=== PATIENT | male | born 1945 | race Caucasian/White ===

== ENCOUNTER 2022-05-21 15:48 | Outpatient (CLI) | payer MEDICARE ==
[2022-05-21 19:22] LABS: CALCIUM 9.1 mg/dL (8.5-10.3); CREATININE 1.2 mg/dL (0.6-1.2); POTASSIUM 4.3 mmol/L (3.5-5.0)
== END 2022-05-21 15:49 | disposition home or self-care (01) ==
LOC: LAB.S 15:48
PROVIDERS: ATTEND Family Medicine
DX: I10 Essential (primary) hypertension (principal)
CPT/HCPCS: 36415; 80048

== ENCOUNTER 2023-05-06 08:00 | Outpatient (CLI) | payer MEDICARE ==
--- NOTE | 2023-05-06 15:54 | XRAY Report ---
PROCEDURE: Abdomen 2 View X-Ray INDICATIONS: GENERALIZED ABDOMINAL PAIN TECHNIQUE: 2 views of the abdomen were acquired. COMPARISON: None. FINDINGS: Surgical changes and devices: None. Bowel: No pneumoperitoneum. The bowel gas pattern is normal. Mild increased colonic stool. Soft tissues: No masses; visualized solid organ contours appear normal in size. No suspicious abdom inal calcifications. Bones: No suspicious bony abnormalities. IMPRESSION: Increased colonic stool suggestive constipation without obstruction. Reviewed by: Debra Nicholson MD on 05/06/2023 3:53 PM PST Approved by: Debra Nicholson MD on 05/06/2023 3:53 PM [facility] Station ID: [id number]
== END 2023-05-06 23:59 | disposition home or self-care (01) ==
LOC: DI.S 08:00
PROVIDERS: ATTEND Physician Assistant Medical
DX: R10.84 Generalized abdominal pain (principal)

== ENCOUNTER 2023-05-28 09:34 | Emergency (ER) | payer MEDICARE ==
[2023-05-28 10:14] LABS: BASOPHILS # (AUTO) 0.1 10^3/uL (0.0-0.1); BASOPHILS % (AUTO) 0.7 %; EOSINOPHILS # (AUTO) 0.2 10^3/uL (0.0-0.7); EOSINOPHILS % (AUTO) 2.4 %; HCT - HEMATOCRIT 45.1 % (42.0-52.0); HGB - HEMOGLOBIN 14.6 g/dL (14.0-18.0); LYMPHOCYTES % (AUTO) 26.5 %; MEAN CORPUSCULAR HEMOGLOBIN 29.7 pg (27.0-31.0); MEAN CORPUSCULAR HGB CONC 32.4 g/dL (32.0-36.0); MEAN CORPUSCULAR VOLUME 91.9 fL (80.0-94.0); MEAN PLATELET VOLUME 10.8 fL (7.4-11.4); MONOCYTES # (AUTO) 0.7 10^3/uL (0.0-1.0); MONOCYTES % (AUTO) 9.3 %; NEUTROPHILS # (AUTO) 4.6 10^3/uL (1.5-6.6); NEUTROPHILS % (AUTO) 60.8 %; PLT - PLATELET COUNT 208 10^3/uL (130-450); RED BLOOD COUNT 4.91 10^6/uL (4.70-6.10); RED CELL DISTRIBUTION WIDTH 12.5 % (12.0-15.0); WHITE BLOOD COUNT 7.5 x10^3/uL (4.8-10.8)
[2023-05-28 10:30] LABS: ALBUMIN 4.2 g/dL (3.2-5.5); ALBUMIN/GLOBULIN RATIO 1.5 (1.0-2.2); BILIRUBIN,TOTAL 0.6 mg/dL (0.2-1.0); CALCIUM 9.9 mg/dL (8.5-10.3); CREATININE 1.2 mg/dL (0.6-1.3); POTASSIUM 4.1 mmol/L (3.5-4.5)
--- NOTE | 2023-05-28 13:22 | ED Physician Documentation ---
PD HPI ABD PAIN - Stated complaint Stated Complaint: ABD PX - Chief complaint Chief Complaint: Abd Pain - History obtained from History obtained from: Patient - Additional information Additional information: This is a 78-year-old male who presents today with lower abdominal pain as well as weight loss. He has had several episodes of abdominal pain over the course of the last 4 months or so. He has been seen by his PCP for this and had a prior CT scan a few weeks ago which was reportedly normal. His symptoms were attributed to constipation and he was started on a bowel regimen which she was taking and it was effective, he had bowel movements regularly however the MiraLAX was eventually stopped because he had 4 bowel movements in 1 day. This is stopped a few days ago and he became mildly constipated again though did have a bowel movement today. Movements are nonbloody, and he has no nausea, vomiting, no dysuria urgency or frequency, no fever or chills. He states pain typically is suprapubic or around his umbilicus. Pain was quite severe last night as he came to the ER today. He also notes he has had weight loss over the last couple of months, last 12 to 14 pounds unintentionally though he has purposely been trying to eat more because for a period of time he had less abdominal pain if he was eating. He does not necessarily have an appetite but tries to make himself eat. Review of Systems Constitutional: reports: Reviewed and negative Nose: reports: Reviewed and negative Throat: reports: Reviewed and negative Cardiac: reports: Reviewed and negative Respiratory: reports: Reviewed and negative GI: reports: Abdominal Pain, Constipation. denies: Abdominal Swelling, Nausea, Vomiting, Diarrhea, Hematemesis, Bloody / black stool : reports: Reviewed and negative Musculoskeletal: reports: Reviewed and negative Neurologic: reports: Reviewed and negative PD PAST MEDICAL HISTORY - Past Medical History Past Medical History: Yes Cardiovascular: Hypertension GI: GERD - Present Medications Home Medications: Ambulatory Orders Medication Instructions Recorded Confirmed Ascorbic Acid [Vitamin C] 1 tab PO DAILY 05/28/23 05/28/23 Atorvastatin [Lipitor] 1 cap PO DAILY 05/28/23 05/28/23 Cholecalciferol [Vitamin D3] 1 tab PO DAILY 05/28/23 05/28/23 Lisinopril [Zestril] 1 tab PO DAILY 05/28/23 05/28/23 Metoprolol Succinate [Toprol Xl] 1 cap PO DAILY 05/28/23 05/28/23 Omeprazole 20 mg PO DAILY 05/28/23 05/28/23 Vitamin E (Dl,Tocopheryl Acet) 1 cap PO DAILY 05/28/23 05/28/23 [Vitamin E] hydroCHLOROthiazide [Hydrodiuril] 1 cap PO DAILY 05/28/23 05/28/23 polyethylene glycoL 3350 [Miralax] 1 packet PO DAILY 05/28/23 05/28/23 - Allergies Allergies/Adverse Reactions: Allergies Allergy/AdvReac Type Severity Reaction Status Date / Time No Known Drug Allergies Allergy Verified 05/28/23 09:56 - Social History Does the pt smoke?: No Smoking Status: Never smoker PD ED PE NORMAL - Vitals Vital signs reviewed: Yes - General General: Alert and oriented X 3, No acute distress, Well developed/nourished - HEENT HEENT: Atraumatic, Moist mucous membranes - Neck Neck: Supple, no meningeal sign, No JVD - Cardiac Cardiac: RRR, No murmur - Respiratory Respiratory: No respiratory distress, Clear bilaterally - Abdomen Abdomen: Normal bowel sounds, Soft, Non tender, Non distended, No organomegaly, Other (No reproducible abdominal pain at this time.) - Male Male : Deferred, Other (Mild suprapubic tenderness) - Back Back: No CVA TTP, No spinal TTP - Derm Derm: Normal color, Warm and dry, No rash - Extremities Extremities: No deformity - Neuro Neuro: Alert and oriented X 3 Eye Opening: Spontaneous Motor: Obeys Commands Verbal: Oriented GCS Score: 15 - Psych Psych: Normal mood, Normal affect Results - Vitals Vitals: Vital Signs - 24 hr 05/28/23 05/28/23 09:50 13:15 Temperature 36 C L 36.7 C Heart Rate 58 L 67 Respiratory 18 16 Rate Blood Pressure 148/69 H 160/89 H O2 Saturation 98 100 Oxygen O2 Source Room air - Labs Labs: Laboratory Tests 05/28/23 05/28/23 05/28/23 10:08 10:08 13:10 WBC 7.5 RBC 4.91 Hgb 14.6 Hct 45.1 MCV 91.9 MCH 29.7 MCHC 32.4 RDW 12.5 Plt Count 208 MPV 10.8 Neut # (Auto) 4.6 Lymph # (Auto) 2.0 [place] # (Auto) 0.7 Eos # (Auto) 0.2 Baso # (Auto) 0.1 Absolute Nucleated RBC 0.00 Nucleated RBC % 0.0 Sodium 138 Potassium 4.1 Chloride 102 Carbon Dioxide 29 Anion Gap 7.0 BUN 21 H Creatinine 1.2 Estimated GFR (MDRD) 59 L Glucose 119 H Calcium 9.9 Total Bilirubin 0.6 AST 23 ALT 19 Alkaline Phosphatase 67 Total Protein 7.0 Albumin 4.2 Globulin 2.8 Albumin/Globulin Ratio 1.5 Lipase 90 H Urine Color LIGHT YELLOW Urine Clarity CLEAR Urine pH 6.0 Ur Specific [place] <=1.005 Urine Protein NEGATIVE Urine Glucose (UA) NEGATIVE Urine Ketones NEGATIVE Urine Occult Blood NEGATIVE Urine Nitrite NEGATIVE Urine Bilirubin NEGATIVE Urine Urobilinogen 0.2 (NORMAL) Ur Leukocyte Esterase NEGATIVE Ur Microscopic Review NOT INDICATED Urine Culture Comments NOT INDICATED - Rads (name of study) No standard instances Relevant Findings:: Final report received PD Medical Decision Making - ED course Complexity details: reviewed old records, reviewed results, re-evaluated patient, considered differential, d/w patient, d/w family ED course: 78-year-old male presented with abdominal pain as described in HPI. The pain is quite low and abdomen suprapubic area but associated with constipation. I thought his pain may be due to constipation versus diverticulitis versus mass, much less likely cholecystitis or appendicitis or gastroenteritis based on his physical exam and labs. We obtained lab work which is reassuring, he has no leukocytosis, stable CBC and CMP. CT abdomen pelvis shows functional constipation, a pulmonary nodule that patient was already aware of and Prostatomegaly. I discussed these findings with the patient, recommended that he resume his bowel regimen, including MiraLAX up to 3 times a day and as needed suppositories with a goal of 1-4 bowel movements a day. He was advised to follow-up with PCP and/or GI, I think he may need to have an outpatient colonoscopy to ensure that there are no masses or other issues causing his pain and bowel pattern changes. He was also advised to have a AAA a PSA from his PCP and he can have outpatient chest CT to monitor the pulmonary nodule. I do believe the patient is stable for discharge home, he has MiraLAX and suppositories at home which she will resume and diet adjustments were discussed. Return precautions viewed. Departure - Departure Disposition: 01 Home, Self Care Clinical Impression: Functional constipation, Diverticulosis Condition: Good Instructions: ED Constipation, ED Abdominal Pain Unkn Cause Male Comments: Your CT scan showed a constipation as well as diverticulosis which is a common finding on CT scans. This is not an infection but can lead to a condition called diverticulitis. Given your pain and change in bowel patterns, I do recommend that you see GI and consider a possible colonoscopy to evaluate further. Please resume your bowel regimen including the MiraLAX and supposito eric and stick with a clear liquid diet for the next couple of days and then advance slowly to a soft diet, avoid any nuts or seeds and avoid any red meat or hard to digest items until symptoms improve. If you develop a fever, or worsening symptoms, please return to the ER. As we discussed, you do have a pulmonary nodule that was seen previously and signs of an enlarged prostate on the CT scan. These can be followed up by your primary doctor. Forms: PCP List
[2023-05-28 13:27] LABS: BILIRUBIN,URINE NEGATIVE (NEGATIVE); GLUCOSE, URINE (UA) NEGATIVE (NEGATIVE); KETONES,URINE (UA) NEGATIVE (NEGATIVE); LEUKOCYTE ESTERASE, URINE NEGATIVE (NEGATIVE); NITRITE,URINE NEGATIVE (NEGATIVE); OCCULT BLOOD,URINE NEGATIVE (NEGATIVE); PROTEIN,URINE NEGATIVE (NEGATIVE); UROBILINOGEN,URINE 0.2 (NORMAL) E.U./dL (NORMAL)
[2023-05-28 13:36] LABS: CLARITY,URINE CLEAR (CLEAR)
[2023-05-28] MEDS ORDERED: iohexoL-300 100 ML VIAL IVP ONE (13:51)
--- NOTE | 2023-05-28 14:42 | CT Report ---
PROCEDURE: ABDOMEN/PELVIS W INDICATIONS: abd pain, weight loss CONTRAST: 100ml omni 300 TECHNIQUE: After the administration of intravenous contrast, a CT scan of the abdomen and pelvis was performed. Images were recorded and evaluated at appropriate window settings. Reformats: coronal and sagittal. F or radiation dose reduction, the following was used: automated exposure control, adjustment of mA and /or kV according to patient size. COMPARISON: None. FINDINGS: Image quality: Excellent. Lung bases and heart: There is a 0.8 x 1.2 cm pulmonary nodule in the posterior right lung base, pote ntially representing a malignant pulmonary nodule. Liver: No solid mass. Gallbladder and biliary tree: No radiopaque stones or wall thickening. No biliary dilation. Spleen: No splenomegaly. Pancreas: No pancreatic ductal dilation. Adrenals: No adrenal nodule. Kidneys and ureters: No hydronephrosis. No renal cystic lesion which requires follow up. No solid mas s. Bowel and peritoneum: No bowel distension. No pathologic free fluid. There is extensive sigmoid diver ticulosis without evidence of diverticulitis. There is moderately large fecal load with equalization of distal ileal content suggesting constipation/delayed transit through the colon. Lymph nodes: No central or retroperitoneal adenopathy. Vessels: No infrarenal aortic aneurysm. PELVIS Reproductive organs: Moderate prostatomegaly, with nodularity. There is extrinsic compression on the base of the bladder. Bladder: No abnormal wall thickening. Pelvic lymph nodes: No pelvic adenopathy by size criteria. Bones: No aggressive osseous abnormality. Other: No significant ventral or inguinal hernia. IMPRESSION: 1. A 0.8 x 1.2 cm pulmonary nodule in the right lung base may potentially represent a malignant pulmo nary nodule. 2. No findings suspicious for metastatic disease in the abdomen and pelvis. 3. Moderate prostatomegaly with nodularity. Recommend correlation with PSA. 4. Moderately advanced sigmoid diverticulosis. 5. Moderately large fecal load with findings consistent with delayed colonic transit. Comment: Chest CT may be helpful. Reviewed by: Jacques Jimenez MD on 05/28/2023 2:41 PM PST Approved by: Jacques Jimenez MD on 05/28/2023 2:41 PM PST Station ID: [id number]
[2023-05-28 15:30] VITALS: BP 172/95; O2SAT 95
== END 2023-05-28 15:39 | disposition home or self-care (01) ==
LOC: ED 09:34
DX: K57.90 Diverticulosis of intestine, part unspecified, without perforation or abscess without bleeding (principal); K59.04 Chronic idiopathic constipation; I10 Essential (primary) hypertension; Z79.899 Other long term (current) drug therapy
CPT/HCPCS: 36415; 74177; 80053; 81003; 83690; 85025; 99283; 99284; Q9967; 81001; 87086

== ENCOUNTER 2023-06-15 15:43 | Outpatient (CLI) | payer MEDICARE ==
--- NOTE | 2023-06-15 16:22 | XRAY Report ---
PROCEDURE: Abdomen 1 V INDICATIONS: CONSTIPATION TECHNIQUE: One view of the abdomen acquired. COMPARISON: None. FINDINGS: Surgical changes and devices: None. Bowel: Moderate colonic stool. Minimal scattered fluid levels are present. Soft tissues: No suspicious abdominal calcifications. Visualized solid organ contours appear normal in size. Bones: No suspicious bony lesions. IMPRESSION: Overall nonspecific gas pattern with minimal scattered fluid levels. This could represent ileus versu s developing partial obstruction. Constipation is present. Reviewed by: Debra Nicholson MD on 06/15/2023 4:21 PM PST Approved by: Debra Nicholson MD on 06/15/2023 4:21 PM PST Station ID: [id number]
== END 2023-06-15 15:44 | disposition home or self-care (01) ==
LOC: DI.S 15:43
PROVIDERS: ATTEND Registered Nurse
DX: K59.00 Constipation, unspecified (principal)

== ENCOUNTER 2023-07-01 13:47 | Outpatient (CLI) | payer MEDICARE ==
[2023-07-01 19:58] LABS: BASOPHILS # (AUTO) 0.1 10^3/uL (0.0-0.1); BASOPHILS % (AUTO) 0.9 %; EOSINOPHILS # (AUTO) 0.1 10^3/uL (0.0-0.7); EOSINOPHILS % (AUTO) 1.2 %; HCT - HEMATOCRIT 45.4 % (42.0-52.0); HGB - HEMOGLOBIN 13.9 g/dL (14.0-18.0); MEAN CORPUSCULAR HEMOGLOBIN 29.7 pg (27.0-31.0); MEAN CORPUSCULAR HGB CONC 30.6 g/dL (32.0-36.0); MEAN PLATELET VOLUME 12.3 fL (7.4-11.4); MONOCYTES # (AUTO) 0.7 10^3/uL (0.0-1.0); MONOCYTES % (AUTO) 8.7 %; NEUTROPHILS # (AUTO) 5.1 10^3/uL (1.5-6.6); NEUTROPHILS % (AUTO) 63.1 %; PLT - PLATELET COUNT 185 10^3/uL (130-450); RED BLOOD COUNT 4.68 10^6/uL (4.70-6.10); RED CELL DISTRIBUTION WIDTH 12.5 % (12.0-15.0); WHITE BLOOD COUNT 8.1 x10^3/uL (4.8-10.8)
[2023-07-01 20:21] LABS: ALBUMIN/GLOBULIN RATIO 1.4 (1.0-2.2); BILIRUBIN,TOTAL 0.6 mg/dL (0.2-1.0); CALCIUM 9.5 mg/dL (8.5-10.3); CREATININE 1.5 mg/dL (0.6-1.3); POTASSIUM 4.6 mmol/L (3.5-4.5); TOTAL PROTEIN 6.8 g/dL (6.4-8.9)
== END 2023-07-01 13:48 | disposition home or self-care (01) ==
LOC: LAB.S 13:47
PROVIDERS: ATTEND Physician Assistant Medical
DX: N40.0 Benign prostatic hyperplasia without lower urinary tract symptoms (principal); Z13.9 Encounter for screening, unspecified
CPT/HCPCS: 36415; 80053; 84153; 85025

== ENCOUNTER 2023-08-19 10:13 | Outpatient (CLI) | payer MEDICARE ==
[2023-08-19 15:06] LABS: H. PYLORIS ANTIGEN STL NEGATIVE (Negative)
== END 2023-08-19 10:14 | disposition home or self-care (01) ==
LOC: LAB.S 10:13
PROVIDERS: ATTEND Physician Assistant Medical
DX: R10.84 Generalized abdominal pain (principal)
CPT/HCPCS: 83993; 87045; 87046; 87177; 87209; 87329; 87338; 87427; 87493

== ENCOUNTER 2023-11-09 10:07 | Outpatient (CLI) | payer MEDICARE ==
[2023-11-09 14:50] LABS: BILIRUBIN,URINE NEGATIVE (NEGATIVE); GLUCOSE, URINE (UA) NEGATIVE (NEGATIVE); KETONES,URINE (UA) NEGATIVE (NEGATIVE); LEUKOCYTE ESTERASE, URINE NEGATIVE (NEGATIVE); NITRITE,URINE NEGATIVE (NEGATIVE); OCCULT BLOOD,URINE NEGATIVE (NEGATIVE); PROTEIN,URINE NEGATIVE (NEGATIVE); UROBILINOGEN,URINE 0.2 (NORMAL) E.U./dL (NORMAL)
[2023-11-09 14:57] LABS: BACTERIA,URINE None Seen /HPF (None Seen); CLARITY,URINE CLEAR (CLEAR); RBC,URINE None Seen /HPF (0-5); SQUAMOUS EPITHELIAL CELL,UR NONE SEEN (<= Few); WBC,URINE 0-3 /HPF (0-3)
[2023-11-09 14:59] LABS: CALCIUM 9.9 mg/dL (8.5-10.3); CREATININE 1.2 mg/dL (0.6-1.3); MAGNESIUM 1.8 mg/dL (1.7-2.3); POTASSIUM 3.9 mmol/L (3.5-4.5)
== END 2023-11-09 10:08 | disposition home or self-care (01) ==
LOC: LAB.S 10:07
PROVIDERS: ATTEND Emergency Medicine
DX: I12.9 Hypertensive chronic kidney disease with stage 1 through stage 4 chronic kidney disease, or unspecified chronic kidney disease (principal); N18.31 Chronic kidney disease, stage 3a
CPT/HCPCS: 36415; 80048; 81001; 83735; 87086

== ENCOUNTER 2023-11-23 08:00 | Outpatient (CLI) | payer MEDICARE | END 2023-11-23 23:59 | disposition home or self-care (01) | LOC: LAB.R 08:00 | PROVIDERS: ATTEND Internal Medicine Gastroenterology | DX: R19.5 Other fecal abnormalities (principal) | CPT/HCPCS: 83993 ==

== ENCOUNTER 2023-11-26 13:00 | Outpatient (CLI) | payer MEDICARE ==
[2023-11-26 14:44] LABS: BILIRUBIN,URINE NEGATIVE (NEGATIVE); GLUCOSE, URINE (UA) NEGATIVE (NEGATIVE); KETONES,URINE (UA) NEGATIVE (NEGATIVE); LEUKOCYTE ESTERASE, URINE NEGATIVE (NEGATIVE); NITRITE,URINE NEGATIVE (NEGATIVE); OCCULT BLOOD,URINE NEGATIVE (NEGATIVE); PROTEIN,URINE NEGATIVE (NEGATIVE); UROBILINOGEN,URINE 0.2 (NORMAL) E.U./dL (NORMAL)
[2023-11-26 14:51] LABS: BACTERIA,URINE None Seen /HPF (None Seen); CLARITY,URINE CLEAR (CLEAR); RBC,URINE None Seen /HPF (0-5); SQUAMOUS EPITHELIAL CELL,UR NONE SEEN (<= Few); WBC,URINE 0-3 /HPF (0-3)
[2023-11-26 14:53] LABS: ALBUMIN 4.1 g/dL (3.2-5.5); CALCIUM 9.9 mg/dL (8.5-10.3); CREATININE 1.1 mg/dL (0.6-1.3); PHOSPHORUS 3.5 mg/dL (2.5-5.0); POTASSIUM 4.2 mmol/L (3.5-4.5)
[2023-11-26 14:56] LABS: CREATININE,URINE 104.9 mg/dL
[2023-11-26 15:02] LABS: MICROALBUMIN,URINE < 0.7 mg/dL
== END 2023-11-26 13:01 | disposition home or self-care (01) ==
LOC: LAB.S 13:00
PROVIDERS: ATTEND Internal Medicine Nephrology
DX: I12.9 Hypertensive chronic kidney disease with stage 1 through stage 4 chronic kidney disease, or unspecified chronic kidney disease (principal); N18.31 Chronic kidney disease, stage 3a
CPT/HCPCS: 36415; 80069; 81001; 82043; 82570; 87086

== ENCOUNTER 2024-02-26 10:19 | Outpatient (CLI) | payer MEDICARE ==
[2024-02-26 15:48] LABS: ALBUMIN 4.3 g/dL (3.2-5.5); ALBUMIN/GLOBULIN RATIO 1.5 (1.0-2.2); BILIRUBIN,TOTAL 0.9 mg/dL (0.2-1.0); CALCIUM 9.7 mg/dL (8.5-10.3); CREATININE 1.2 mg/dL (0.6-1.3); POTASSIUM 4.2 mmol/L (3.5-4.5); TOTAL PROTEIN 7.1 g/dL (6.4-8.9)
[2024-02-26 16:01] LABS: THYROID STIMULATING HORMONE 1.47 uIU/mL (0.34-5.60)
== END 2024-02-26 10:20 | disposition home or self-care (01) ==
LOC: LAB.S 10:19
PROVIDERS: ATTEND Internal Medicine
DX: N18.31 Chronic kidney disease, stage 3a (principal); R63.4 Abnormal weight loss
CPT/HCPCS: 36415; 80053; 84443